=== PATIENT | female | born 1985 | race Caucasian/White ===

== ENCOUNTER 2016-12-07 09:48 | Emergency (ER) | payer SELFPAY ==
[2016-12-07 10:02] VITALS: BP 110/64
--- NOTE | 2016-12-07 10:52 | RAD ---
HISTORY: Subacute trauma of the right wrist, right wrist pain COMPARISONS: None VIEWS: 3, Frontal, lateral, and oblique views of the right wrist FINDINGS: BONE DENSITY: Normal. BONES: There is no displaced fracture. JOINTS: There is no arthropathy. ALIGNMENT: There is no dislocation. SOFT TISSUES: Unremarkable. OTHER FINDINGS: None. IMPRESSION: NO ACUTE OSSEOUS INJURY. IF SYMPTOMS PERSIST, RECOMMEND REPEAT IMAGING.
--- NOTE | 2016-12-07 11:36 | UC ---
Rolando English Angela, scribed for Tanisha Chiu DO on 12/07/16 at 1016 . Upper Extremity HPI - HPI Summary HPI Summary: This pt is a 30 y/o female presenting to [facility] c/o right wrist pain s/p injury 2 weeks ago, worsening since 2 days ago. Pt reports she was at work reaching to get chicken off the top of a shelf when two containers fell down. She sustained two injuries to her right arm. First injury: one of the containers hit her wrist. Second injury: the pt then tried to pull her arm out from the two containers that pinned her arm. Pt states that her pain initially was 10/10 in severity and thought her pain would resolve on its own. 2 days ago her pain worsened and today she presents with right wrist swelling. She currently rates her pain 7/10 in severity and states it radiates to her right upper arm. Pt denies chest pain, SOB, sore throat, fever, nausea, vomiting, abd pain, rashes. There are no alleviating or aggravating factors. Pt has continued to work since the onset of her injury. Pt is right-handed. PMHx: carpal tunnel (right hand). Pt is a former smoker. - History of Current Complaint Chief Complaint: UCUpperExtremity Stated Complaint: R WRIST PAIN Hx Obtained From: Patient Hx Last Menstrual Period: hysterectomy ?: No Onset/Duration: Lasting Weeks Severity Initially: Moderate Severity Currently: Moderate Pain Intensity: 7 Pain Scale Used: 0-10 Numeric Location Of Pain: Radiates To - right upper arm Aggravating Factor(s): Nothing Alleviating Factor(s): Nothing Associated Signs And Symptoms: Positive: Swelling Related History: Dominant Hand Right - Allergies/Home Medications Allergies/Adverse Reactions: Allergies Allergy/AdvReac Type Severity Reaction Status Date / Time Acetaminophen [From Percocet] Allergy Itching Verified 12/07/16 10:02 Amoxicillin Allergy Rash Verified 12/07/16 10:02 Cyclobenzaprine Allergy Hives/Diff. Verified 12/07/16 10:02 [From Flexeril] Breathing/I tching Oxycodone [From Percocet] Allergy Itching Verified 12/07/16 10:02 Sulfa Antibiotics Allergy Rash Verified 12/07/16 10:02 Home Medications: Home Medications Sertraline* [Zoloft*] 12/07/16 [History] PMH/Surg Hx/FS Hx/Imm Hx - Additional Past Medical History Additional PMH: PMHx: carpal tunnel (right hand) Endocrine History: Thyroid Disease Other Endocrine History: DENIES: diabetes Other Cardiovascular History: DENIES: HTN Psychological History: Anxiety, Depression - Surgical History Surgical History: Yes Surgery Procedure, Year, and Place: TONSILLECTOMY, CHOLECYSTECTOMY, LESIONS BURNED OFF OF CERVIX, D&C, HYSTERECTOMY - Family History Known Family History: Positive: Cardiac Disease, Hypertension, Diabetes - Social History Alcohol Use: None Substance Use Type: None Smoking Status (MU): Former Smoker Type: Cigarettes Amount Used/How Often: 1/2 ppd Review of Systems Constitutional: Negative Skin: Negative Eyes: Negative ENT: Negative Respiratory: Negative Cardiovascular: Negative Gastrointestinal: Negative Genitourinary: Negative Motor: Negative Musculoskeletal: Other: - right wrist pain, right wrist swelling Neurological: Negative Psychological: Negative Is Patient Immunocompromised?: No All Other Systems Reviewed And Are Negative: Yes Physical Exam Triage Information Reviewed: Yes Appearance: Well-Appearing, No Pain Distress, Well-Nourished Vital Signs: Initial Vital Signs Temp 98.5 F 12/07/16 09:58 Pulse 65 12/07/16 09:58 Resp 16 12/07/16 09:58 BP 110/64 12/07/16 09:58 Pulse Ox 100 12/07/16 09:58 Vital Signs Reviewed: Yes Eyes: Positive: Conjunctiva Clear. Negative: Discharge ENT: Positive: Hearing grossly normal. Negative: Muffled/hoarse voice Neck exam: Normal Neck: Positive: Supple Respiratory: Positive: Lungs clear, Normal breath sounds, No respiratory distress, No accessory muscle use Cardiovascular: Positive: RRR, No Murmur Musculoskeletal: Positive: Other: - RUE: Tenderness at distal radius. There is tenderness at snuff box and 1st metacarpal Neurological: Positive: Alert, Muscle Tone Normal Psychological Exam: Normal Psychological: Positive: Age Appropriate Behavior Skin Exam: Normal Skin: Positive: Other - warm, dry, normal color Diagnostics - Radiology Right wrist XR Xray Interpretation: No Acute Changes - IMPRESSION: No acute osseous injury. If symptoms persist, recommend repeat imaging. ED physician has reviewed this radiology report and agrees. Radiology Interpretation Completed By: Radiologist Upper Extremity Course/Dx - Course Course Of Treatment: Medications reviewed this visit. Right wrist XR is negative. Pt will be discharged. - Differential Dx/Diagnosis Differential Diagnosis/HQI/PQRI: Fracture (Closed), Strain, Sprain Provider Diagnoses: wrist injury Discharge - Discharge Plan Condition: Stable Disposition: HOME Prescriptions: traMADol TAB* [Ultram*] 50 mg PO Q8H PRN #14 tab MDD 3 TABS PRN Reason: Pain Patient Education Materials: Wrist Injury (ED), Splint Care (ED) Forms: *Work Release Referrals: Chavez Dotson JR, PA [Primary Care Provider] - If Needed () Kumar De León MD [Medical Doctor] - (follow up in 3-5 days) Additional Instructions: ULTRAM (tramadol hydrochloride): Ultram is an excellent drug for pain relief. It is not a narcotic, but it works in a similar way. Ultram can take up to two hours for full effect. Although not addicting, Ultram is best avoided in patients with a history of drug abuse. Ultram should not be used with alcohol, sleeping pills, or narcotics. If you're prone to seizures, Ultram can make you more likely to have a seizure. Ultram can be hazardous when combined with MAO-inhibitor antidepressants (such as Nardil or Parnate). Be sure your doctor is aware of all medicines you are taking. Persons with severe liver or kidney disease should increase the time between doses of Ultram. Discuss this with your doctor if you're uncertain. Side effects of Ultram can include dizziness, nausea, constipation, sleepiness, and itching. (These side effects are also seen with narcotic pain medicines.) Please call your doctor if you have other disturbing effects. YOU WOULD LIKELY BENEFIT FROM OSTEOPATHIC MANIPULATION. WE RECOMMEND THAT YOU FIND AN OSTEOPATHIC PHYSICIAN IN YOUR AREA WHO DOES LYMPHATIC, MYOFACIAL AND VISCERAL WORK. The documentation as recorded by the Rolando boucher Angela accurately reflects the service I personally performed and the decisions made by me, Tanisha Chiu DO.
== END 2016-12-07 11:35 | disposition home or self-care (01) ==
LOC: UCEAST 09:48
DX: S69.91XA Unspecified injury of right wrist, hand and finger(s), initial encounter (principal); Z88.0 Allergy status to penicillin; Z88.2 Allergy status to sulfonamides; Z87.891 Personal history of nicotine dependence; X58.XXXA Exposure to other specified factors, initial encounter; Y92.9 Unspecified place or not applicable
CPT/HCPCS: 99213; G0463

== ENCOUNTER 2017-06-13 18:51 | Emergency (ER) | payer OTHER ==
[2017-06-13 19:05] VITALS: BP 100/68
--- NOTE | 2017-06-13 19:45 | UC ---
Back Pain HPI - HPI Summary HPI Summary: c/o chronic pain along spine which is migrating, has been there for many months , achy "as if someone had punched me". The pain is currently in between her shoulder blades. She denies radiation to other areas, denies cough, SOB, dysuria or fever. She states she has not taken tylenol because it makes her drowsy and she drove herself from work to . She states she also has tramadol at home which helps with the pain but has not taken it either. She thought pains would disappear after bariatric surgery but they have continued. - History of Current Complaint Chief Complaint: UCBackPain Stated Complaint: BACK PAIN Time Seen by Provider: 06/13/17 19:03 Hx Obtained From: Patient Hx Last Menstrual Period: hysterectomy ?: No Onset/Duration: Gradual Onset, Lasting Weeks Timing: Intermittent Severity Initially: Moderate Severity Currently: Severe Pain Intensity: 7 Back Pain: Is Diffuse Character: Aching Aggravating Factor(s): Nothing Alleviating Factor(s): Nothing Associated Signs And Symptoms: Positive: Negative - Risk Factors AAA Risk Factors: Negative TAD Risk Factors: Negative Cauda Equina Risk Factors: Negative Epidural Abscess Risk Factors: Negative - Allergies/Home Medications Allergies/Adverse Reactions: Allergies Allergy/AdvReac Type Severity Reaction Status Date / Time amoxicillin Allergy Itching Verified 06/13/17 19:10 cyclobenzaprine Allergy Hives Verified 06/13/17 19:11 [From Flexeril] oxycodone Allergy Hives Verified 06/13/17 19:11 Sulfa (Sulfonamide Allergy Hives Verified 06/13/17 19:11 Antibiotics) Home Medications: Home Medications Phentermine HCl 37.5 mg PO DAILY 06/13/17 [History Confirmed 06/13/17] Topiramate [Topamax] 50 mg PO DAILY 06/13/17 [History Confirmed 06/13/17] PMH/Surg Hx/FS Hx/Imm Hx Previously Healthy: Yes Endocrine History: Hypothyroidism Neurological History: Migraine - Surgical History Surgical History: Yes Surgery Procedure, Year, and Place: TONSILLECTOMY, CHOLECYSTECTOMY, LESIONS BURNED OFF OF CERVIX, D&C, HYSTERECTOMY, gastric bypass surgery - Family History Known Family History: Positive: Unknown, Cardiac Disease, Hypertension, Diabetes - Social History Alcohol Use: None Substance Use Type: None Smoking Status (MU): Former Smoker Type: Cigarettes Amount Used/How Often: 1/2 ppd Review of Systems Constitutional: Negative Musculoskeletal: Arthralgia, Myalgia All Other Systems Reviewed And Are Negative: Yes Physical Exam Triage Information Reviewed: Yes Appearance: Well-Appearing, Obese Vital Signs: Initial Vital Signs Temp 97.6 F 06/13/17 19:01 Pulse 69 06/13/17 19:01 Resp 18 06/13/17 19:01 BP 100/68 06/13/17 19:01 Pulse Ox 100 06/13/17 19:01 Vital Signs Reviewed: Yes Eyes: Positive: Conjunctiva Clear ENT: Positive: Hearing grossly normal, Pharynx normal Neck: Positive: Supple, Nontender, No Lymphadenopathy Respiratory: Positive: Chest non-tender, Lungs clear, Normal breath sounds Cardiovascular: Positive: RRR, No Murmur, Pulses Normal, Brisk Capillary Refill Abdomen Description: Positive: Nontender, No Organomegaly, Soft - no CVAT Bowel Sounds: Positive: Present Musculoskeletal: Positive: Strength Intact, ROM Intact, No Edema Neurological: Positive: Muscle Tone Normal - no tenderness on palpation of interscapular area Skin Exam: Normal Back Pain Course/Dx - Course Course Of Treatment: patient states she has been having this pain for months, has been on PT but does not have any relief, for the past 2 weeks she has migrating pain along spine. She has not taken tylenol or tramadol which eases pain but causes drowsiness. D/w patient to take one of these alternatives and will prescribe neurontin for migrating paresthesias. F/u PCP for assessment of response and or dose adjustment - Differential Dx/Diagnosis Provider Diagnoses: Paresthesias on back Discharge - Sign-Out/Discharge Documenting (check all that apply): Discharge - Discharge Plan Condition: Stable Disposition: HOME Prescriptions: Gabapentin CAP(*) [Neurontin 100 mg CAP(*)] 100 mg PO BEDTIME #30 cap Patient Education Materials: Gabapentin (By mouth), Paresthesia (ED) Referrals: Chavez Dotson JR, PA [Primary Care Provider] - - Billing Disposition and Condition Condition: STABLE Disposition: HOME
== END 2017-06-13 19:30 | disposition home or self-care (01) ==
LOC: UCEAST 18:51
DX: R20.2 Paresthesia of skin (principal); M54.9 Dorsalgia, unspecified; E03.9 Hypothyroidism, unspecified; G43.909 Migraine, unspecified, not intractable, without status migrainosus; Z88.5 Allergy status to narcotic agent; Z88.0 Allergy status to penicillin; Z88.2 Allergy status to sulfonamides; Z88.8 Allergy status to other drugs, medicaments and biological substances; Z87.891 Personal history of nicotine dependence
CPT/HCPCS: 99212; G0463

== ENCOUNTER 2018-11-19 07:18 | Emergency (ER) | payer OTHER ==
[2018-11-19 07:26] VITALS: BP 119/84
--- NOTE | 2018-11-19 07:33 | UC ---
Throat Pain/Nasal Luis HPI - History of Current Complaint Chief Complaint: UCRespiratory Stated Complaint: SORE THROAT Time Seen by Provider: 11/19/18 07:21 Hx Obtained From: Patient Hx Last Menstrual Period: hysterectomy ?: No Onset/Duration: Gradual Onset Severity: Moderate Pain Intensity: 7 Pain Scale Used: 0-10 Numeric Cough: None Associated Signs & Symptoms: Negative: Hoarseness, Sinus Discomfort, Fever Related History: Prior ENT Surgery - T and A - Allergies/Home Medications Allergies/Adverse Reactions: Allergies Allergy/AdvReac Type Severity Reaction Status Date / Time amoxicillin Allergy Itching Verified 11/19/18 07:26 cyclobenzaprine Allergy Hives Verified 11/19/18 07:26 [From Flexeril] oxycodone Allergy Hives Verified 11/19/18 07:26 Sulfa (Sulfonamide Allergy Hives Verified 11/19/18 07:26 Antibiotics) PMH/Surg Hx/FS Hx/Imm Hx Previously Healthy: Yes Endocrine History: Thyroid Disease Respiratory History: Asthma Psychological History: Anxiety, Depression - Surgical History Surgical History: Yes Surgery Procedure, Year, and Place: TONSILLECTOMY, CHOLECYSTECTOMY, LESIONS BURNED OFF OF CERVIX, D&C, HYSTERECTOMY, gastric bypass surgery - Family History Known Family History: Positive: Unknown, Cardiac Disease, Hypertension, Diabetes Family History: Positive for diabetes mellitis. - Social History Alcohol Use: None Substance Use Type: None Smoking Status (MU): Former Smoker Type: Cigarettes Amount Used/How Often: 1/2 ppd Review of Systems All Other Systems Reviewed And Are Negative: Yes ENT: Positive: Sore Throat - 4 days; no improvement; started on left side, now discomfort on right side, Ear Ache - congestion right ear Respiratory: Positive: Negative Cardiovascular: Positive: Negative Gastrointestinal: Positive: Negative Physical Exam Triage Information Reviewed: Yes Appearance: Pain Distress - mild Vital Signs: Initial Vital Signs Temp 98.1 F 11/19/18 07:23 Pulse 79 11/19/18 07:23 Resp 18 11/19/18 07:23 BP 119/84 11/19/18 07:23 Pulse Ox 100 11/19/18 07:23 Vital Signs Reviewed: Yes Eye Exam: Normal ENT Exam: Other ENT: Positive: Hearing grossly normal, TMs normal, Uvula midline. Negative: Pharynx normal - erythema; no swelling; no exudate, Nasal congestion, Nasal drainage, TM bulging, TM dull, TM red, Tonsillar swelling, Tonsillar exudate, Muffled voice, Dental tenderness, Sinus tenderness Neck exam: Normal Neck: Positive: Supple Respiratory: Positive: Chest non-tender, Lungs clear Cardiovascular: Positive: RRR Abdomen Description: Positive: Nontender, No Organomegaly Psychological: Positive: Age Appropriate Behavior Skin Exam: Normal Skin: Negative: Rashes Throat Pain/Nasal Course/Dx - Course Course Of Treatment: Patient presents with a sore throat consistent with pharyngitis. Examination of the throat shows no peritonsillar abscess. There is no posterior, cervical adenopathy. There is no history of shortness of breath or change in voice. The patient is well-hydrated. Rapid strep is negative. Diagnosis is consistent with pharyngitis. Treatment is throat hygiene and comfort measures including tea and honey, warm water garbles, viscous lidocaine and dexamethasone for 2 days, 8 mg a day. Follow up for continued symptoms in 3 days. Patient knows to go to ED for any inability to swallow or increasing shortness of breath. - Differential Dx/Diagnosis Differential Diagnosis/HQI/PQRI: Epiglottitis, Laryngitis, Devin's Angina, Mononucleosis, Peritonsillar Abscess, Pharyngitis, Tonsillitis, URI Provider Diagnosis: Pharyngitis Discharge ED - Sign-Out/Discharge Documenting (check all that apply): Patient Departure All imaging exams completed and their final reports reviewed: No Studies - Discharge Plan Condition: Stable Disposition: HOME Prescriptions: Dexamethasone TAB* [Decadron TAB*] 4 mg PO DAILY #4 tab MDD 2 A DAY Lidocaine 2% VISCOUS* [Xylocaine 2% Viscous*] 15 ml SWISH SPIT Q6H PRN #1 btl MDD 4 TIMES A DAY PRN Reason: Sore Throat Patient Education Materials: Strep Throat (DC) Referrals: Chavez Dotson JR PA [Primary Care Provider] - Additional Instructions: Diagnosis: sore throat caused by virus. You do not need antibiotics at this time. Treatment: To help you feel more comfortable: Dexamethasone: 2 pills today, and 2 tomorrow. Viscous lidocaine: gargle and spit out. Warm salt water gargles. Keep throat moist with lozanges. Use acetaminophen, Tylenol, 1000mg, and Ibuprofen, 400-600 mg, for pain. You can take these together up to 3 times a day. Recheck if you are not improving in 3 days. GO TO ED IF YOU HAVE ANY PROBLEMS BREATHING OR SWALLOWING. - Billing Disposition and Condition Condition: STABLE Disposition: Home
== END 2018-11-19 08:07 | disposition home or self-care (01) ==
LOC: UCEAST 07:18
DX: J02.9 Acute pharyngitis, unspecified (principal); E07.9 Disorder of thyroid, unspecified; F41.9 Anxiety disorder, unspecified; F32.9 Major depressive disorder, single episode, unspecified; J45.909 Unspecified asthma, uncomplicated; Z88.5 Allergy status to narcotic agent; Z88.2 Allergy status to sulfonamides; Z87.891 Personal history of nicotine dependence
CPT/HCPCS: 87651; 99212; G0463